=== PATIENT | female | born 1990 | race American Indian/Alaskan Native ===

== ENCOUNTER 2017-01-03 17:34 | Emergency (ER) | payer MEDICAID ==
[2017-01-03 17:40] VITALS: BMI 20.9
[2017-01-03 17:42] VITALS: BP 118/75; PULSE 93; TEMP 99
--- NOTE | 2017-01-03 18:10 | ED PDOC ---
Arrival/HPI - General Chief Complaint: Lower Extremity Problem/Injury Time Seen by Provider: 01/03/17 17:46 Historian: Patient - History of Present Illness Narrative History of Present Illness (Text): 01/03/17 18:07 26yr old female presents today with right ankle pain. pt doesnt remember any injury to the ankle but states she did workout this morning. pt c/o pain over the lateral malleolus. denies calf pain. denies numbness, weakness or tingling in the extremity. pt denies fever/chills. pt with prior hx of high ankle sprain of the right ankle in the past. Symptom Onset: Sudden Symptom Course: Unchanged Quality: Aching Severity Level: 3 Past Medical History - Provider Review Nursing Documentation Reviewed: Yes - Travel History Have you recently traveled outside [place] w/in the past 3 mons?: No - Infectious Disease Hx of Infectious Diseases: None - Tetanus Immunization Tetanus Immunization: Unknown - Psychiatric Hx Substance Use: No Family/Social History - Physician Review Nursing Documentation Reviewed: Yes Family/Social History: Unknown Family HX Smoking Status: Light Smoker < 10 Cigarettes Daily Hx Alcohol Use: No Hx Substance Use: No Allergies/Home Meds Allergies/Adverse Reactions: Allergies shellfish derived Allergy (Verified 01/03/17 17:40) ANAPHYLAXIS Review of Systems - Review of Systems Constitutional: absent: Fatigue, Fevers Respiratory: absent: SOB, Cough Cardiovascular: absent: Chest Pain, Palpitations Gastrointestinal: absent: Abdominal Pain, Nausea, Vomiting Genitourinary Female: absent: Dysuria, Frequency, Hematuria Musculoskeletal: Arthralgias (right ankle pain). absent: Back Pain, Neck Pain Skin: absent: Rash, Pruritis Neurological: absent: Headache Psychiatric: absent: Anxiety, Depression Physical Exam Vital Signs Reviewed: Yes Vital Signs Temp Pulse Resp BP Pulse Ox 01/03/17 17:41 99.0 F 93 H 17 118/75 100 Temperature: Afebrile Blood Pressure: Normal Pulse: Regular Respiratory Rate: Normal Appearance: Positive for: Well-Appearing, Non-Toxic, Comfortable Pain Distress: None Mental Status: Positive for: Alert and Oriented X 3 - Systems Exam Head: Present: Atraumatic Mouth: Present: Moist Mucous Membranes Neck: Present: Normal Range of Motion Respiratory/Chest: Present: Clear to Auscultation, Good Air Exchange. No: Respiratory Distress, Accessory Muscle Use Cardiovascular: Present: Regular Rate and Rhythm, Normal S1, S2. No: Murmurs Upper Extremity: Present: Normal Inspection Lower Extremity: Present: Normal ROM, Tenderness (right ankle; + ttp over ), Swelling, Neurovascularly Intact, Capillary Refill < 2 s. No: CALF TENDERNESS, Erythema, Deformity Neurological: Present: GCS=15 Skin: Present: Warm, Dry, Normal Color. No: Rashes Psychiatric: Present: Alert, Oriented x 3 Medical Decision Making ED Course and Treatment: 01/03/17 18:27 Patient nontoxic well-appearing in no distress with stable vital signs Patient refused Toradol for pain. Motrin given by mouth X-rays of the right ankle: no fracture Patient placed in aircast and crutches given for ambulation. I discussed all results in depth with the patient advised to followup with the orthopedist within the next 2 days. Advised return if symptoms worsen persist or new symptoms develop i advised the patient that although the xrays show no fracture; there is still a possibility for ligamentous or tendon injury the patient must see the orthopedist for further evaluation. Patient verbalizes understanding of discharge instructions and need for immediate followup. Impression: Ankle pain Motrin every 6 hours as needed for pain Rest, ice, compression, elevation Use crutches for ambulation Followup with the orthopedist within the next 2 days Followup with primary care physician within the next 2 days Return if symptoms worsen persist or if new symptoms develop 01/03/17 19:01 - RAD Interpretation Radiology Orders: 01/03/17 17:51 ANKLE RIGHT 3 VIEWS ROUTINE [RAD] Stat - Medication Orders Current Medication Orders: Discontinued Medications Ibuprofen (Motrin Tab) 600 mg PO STAT STA Stop: 01/03/17 17:51 Last Admin: 01/03/17 18:12 Dose: 600 mg Disposition/Present on Arrival - Present on Arrival Any Indicators Present on Arrival: No History of DVT/PE: No History of Uncontrolled Diabetes: No Urinary Catheter: No History of Decub. Ulcer: No History Surgical Site Infection Following: None - Disposition Have Diagnosis and Disposition been Completed?: Yes Diagnosis: Ankle pain Disposition: HOME/ ROUTINE Disposition Time: 19:05 Patient Plan: Discharge Condition: GOOD Discharge Instructions (ExitCare): Arthralgia (ED) Additional Instructions: Motrin every 6 hours as needed for pain Rest, ice, compression, elevation Use crutches for ambulation Followup with the orthopedist within the next 2 days Followup with primary care physician within the next 2 days Return if symptoms worsen persist or if new symptoms develop Prescriptions: Ibuprofen [Motrin] 600 mg PO Q6H PRN #20 tab PRN Reason: pain/fever reduction Referrals: [facility] [place] - Follow up with primary [facility] [place] [Outside] - Follow up with primary Helen Kim MD [Staff Provider] - Follow up with primary Alise Khan MD [Staff Provider] - Follow up with primary Forms: WORK NOTE
[2017-01-03 19:17] VITALS: RESP 16; O2SAT 99
--- NOTE | 2017-01-04 08:20 | RAD ---
PROCEDURE: Right Ankle Radiographs. HISTORY: ankle pain lateral malleolus COMPARISON: None FINDINGS: BONES: Normal. No fracture. JOINTS: Normal. No osteoarthritis. Ankle mortise maintained. Talar dome intact SOFT TISSUES: Normal. OTHER FINDINGS: None. IMPRESSION: Normal right ankle radiographs.
== END 2017-01-03 19:17 | disposition home or self-care (01) ==
LOC: ED 17:34
DX: M25.571 Pain in right ankle and joints of right foot (principal)

== ENCOUNTER 2017-06-20 18:24 | Emergency (ER) | payer MEDICAID ==
[2017-06-20 18:27] VITALS: BMI 25.2
[2017-06-20 18:34] VITALS: TEMP 98; O2SAT 100
[2017-06-20] MEDS ORDERED: Sodium Chloride 0.9% 1,000 ML IV STA (18:44)
--- NOTE | 2017-06-20 19:02 | ED PDOC ---
Arrival/HPI - General Chief Complaint: Abdominal Pain Time Seen by Provider: 06/20/17 18:43 Historian: Patient - History of Present Illness Narrative History of Present Illness (Text): 06/20/17 19:00 A 27 year old female, LMP was 12 days ago, presents to the emergency department complaining of abdominal pain for the past couple of weeks. Patient reports developed as lower abdominal pain and 30 minutes prior to arrival to the emergency department felt a sharp pain on RUQ radiating to RLQ. Reports she made an appointment with LEAD DEVELOPER, which is in four days, and her health policy manager , which is on 07/13/17. Patient denies any nausea, vomiting, vaginal bleeding or any other complaints at this time. Time/Duration: > week Symptom Onset: Sudden Symptom Course: Unchanged Activities at Onset: Rest Context: Home Past Medical History - Provider Review Nursing Documentation Reviewed: Yes - Infectious Disease Hx of Infectious Diseases: None - Tetanus Immunization Tetanus Immunization: Unknown - Psychiatric Hx Substance Use: No - Anesthesia Hx Anesthesia: No Family/Social History - Physician Review Nursing Documentation Reviewed: Yes Family/Social History: No Known Family HX Smoking Status: Light Smoker < 10 Cigarettes Daily Hx Alcohol Use: Yes Frequency of alcohol use: Socially Hx Substance Use: No Allergies/Home Meds Allergies/Adverse Reactions: Allergies shellfish derived Allergy (Severe, Verified 07/02/17 18:31) ANAPHYLAXIS Review of Systems - Physician Review All systems were reviewed & negative as marked: Yes - Review of Systems Gastrointestinal: Abdominal Pain. absent: Nausea, Vomiting Genitourinary Female: absent: Vaginal Bleeding Physical Exam Vital Signs Reviewed: Yes Vital Signs Temp Pulse Resp BP Pulse Ox 06/20/17 20:24 80 16 130/75 100 06/20/17 18:27 98.0 F 81 17 133/86 100 Temperature: Afebrile Blood Pressure: Normal Pulse: Regular Respiratory Rate: Normal Appearance: Positive for: Well-Appearing, Non-Toxic, Comfortable Pain Distress: None Mental Status: Positive for: Alert and Oriented X 3 - Systems Exam Head: Present: Atraumatic, Normocephalic Pupils: Present: PERRL Extroacular Muscles: Present: EOMI Conjunctiva: Present: Normal Mouth: Present: Moist Mucous Membranes Neck: Present: Normal Range of Motion Respiratory/Chest: Present: Clear to Auscultation, Good Air Exchange. No: Respiratory Distress, Accessory Muscle Use Cardiovascular: Present: Regular Rate and Rhythm, Normal S1, S2. No: Murmurs Abdomen: Present: Tenderness (RLQ), Normal Bowel Sounds. No: Distention, Peritoneal Signs Back: Present: Normal Inspection Upper Extremity: Present: Normal Inspection. No: Cyanosis, Edema Lower Extremity: Present: Normal Inspection. No: Edema Neurological: Present: GCS=15, CN II-XII Intact, Speech Normal Skin: Present: Warm, Dry, Normal Color. No: Rashes Psychiatric: Present: Alert, Oriented x 3, Normal Insight, Normal Concentration Medical Decision Making ED Course and Treatment: 06/20/17 18:59 Impression: A 27 year old female with RLQ abdominal pain. Plan: -- CT abd/pelvis -- labs -- Urinalysis -- IV fluids, Toradol -- Reassess and disposition Prior Visits: Notes and results from previous visits were reviewed. Patient last reported to the emergency department on 01/03/17 for evaluation of right ankle pain. Progress Notes: CT Abdomen and Pelvis Without Intravenous Contrast FINDINGS: Lower thorax: The bilateral lung bases are clear. ABDOMEN: Liver: No acute findings Gallbladder and bile ducts: No acute finding. No calcified stones. No intra- extrahepatic biliary ductal dilation. Pancreas: Limited evaluation secondary to the lack of intravenous contrast. Spleen: No acute findings. Adrenals: No acute findings. Kidneys and ureters: No obstructing stones. No hydronephrosis. PELVIS: Bladder: No acute findings. Reproductive: Nondiagnostic evaluation secondary to the lack of intravenous contrast and intraabdominal/intrapelvic fat. Appendix: The appendix is normal in caliber without surrounding inflammatory change (series 2, image 161; series 601, image 61). ABDOMEN and PELVIS: Stomach and bowel: No acute findings. Peritoneum: No acute findings. Lymph nodes: Limited evaluation without intravenous contrast. Vasculature: Unremarkable Bones: No acute fracture. IMPRESSION: Normal appendix. Limited evaluation of the female pelvis. If clinical suspicion persists for LEAD DEVELOPER pathology, pelvic ultrasound would provide additional information. Dictated and Authenticated by: Denita Ralph MD 06/20/2017 9:24 PM Eastern Time ([place] & [place]) 06/20/17 21:31 On reevaluation, patient feels better and is in no acute distress. Discussed results and plan with patient. Patient understands results and is agreeable with plan. All questions answered. Patient is stable for discharge. - Lab Interpretations Lab Results: 06/20/17 19:25 06/20/17 19:25 Lab Results 06/20/17 19:25: Sodium 139, Potassium 3.9, Chloride 103, Carbon Dioxide 27, Anion Gap 13, BUN 15, Creatinine 0.8, Est GFR ( Amer) > 60, Est GFR (Non- Af Amer) > 60, Random Glucose 100, Calcium 9.9, Total Bilirubin 0.4, AST 27, ALT 30, Alkaline Phosphatase 51, Total Protein 7.4, Albumin 4.5, Globulin 2.9, Albumin/Globulin Ratio 1.6, Lipase 62 06/20/17 19:25: WBC 6.4, RBC 4.19, Hgb 11.8 L, Hct 34.8 L, MCV 83.1, MCH 28.2, MCHC 33.9, RDW 13.6, Plt Count 306, MPV 9.5, Gran % 56.5, Lymph % (Auto) 31.9, [place] % (Auto) 7.5 H, Eos % (Auto) 3.8, Baso % (Auto) 0.3, Gran # 3.62, Lymph # 2.0, [place] # 0.5, Eos # 0.2, Baso # 0.02 06/20/17 19:00: Urine Color Yellow, Urine Appearance Clear, Urine pH 6.5, Ur Specific [place] 1.015, Urine Protein Negative, Urine Glucose (UA) Negative, Urine Ketones Negative, Urine Blood Negative, Urine Nitrate Negative, Urine Bilirubin Negative, Urine Urobilinogen 0.2, Ur Leukocyte Esterase Negative, Urine HCG, Qual Negative I have reviewed the lab results: Yes - RAD Interpretation Radiology Orders: 06/20/17 18:48 ABD & PELVIS W/O PO OR IV CONT [CT] Stat - Medication Orders Current Medication Orders: Discontinued Medications Sodium Chloride (Sodium Chloride 0.9%) 1,000 mls @ 1,000 mls/hr IV .Q1H STA Stop: 06/20/17 19:43 Last Admin: 06/20/17 19:40 Dose: 1,000 mls/hr eMAR Start Stop Document 06/20/17 19:40 JOL (Rec: 06/20/17 19:41 [facility] [place] Intravenous Solution Start Date 06/20/17 Start Time 19:41 End Date 06/20/17 End time 20:41 Total Infusion Time 60 Ketorolac Tromethamine (Toradol) 30 mg IVP STAT STA Stop: 06/20/17 18:45 Last Admin: 06/20/17 19:41 Dose: 30 mg MAR Pain Assessment Document 06/20/17 19:41 RUEL (Rec: 06/20/17 19:41 [facility]) Pain Reassessment Is this a pain reassessment? No Sleep Is patient sleeping during reassessment? No Presence of Pain Presence of Pain Yes Pain Scale Used Pain Scale Used Numeric Location Left, Right or Bilateral Right Upper or Lower Lower Pain Location Body Site Abdomen Description Description Intermittent Intensity of Pain at present 6 Acceptable Level of Pain 2 Pain Behavior Restlessness Facial Grimacing IVP Administration Document 06/20/17 19:41 RUEL (Rec: 06/20/17 19:41 [facility]) Charges for Administration # of IVP Administrations 1 - Scribe Statement The provider has reviewed the documentation as recorded by the Scribheladio Rivers All medical record entries made by the Scribe were at my direction and personally dictated by me. I have reviewed the chart and agree that the record accurately reflects my personal performance of the history, physical exam, medical decision making, and the department course for this patient. I have also personally directed, reviewed, and agree with the discharge instructions and disposition. Disposition/Present on Arrival - Present on Arrival Any Indicators Present on Arrival: No History of DVT/PE: No History of Uncontrolled Diabetes: No Urinary Catheter: No History of Decub. Ulcer: No History Surgical Site Infection Following: None - Disposition Have Diagnosis and Disposition been Completed?: Yes Diagnosis: Abdominal pain Disposition: HOME/ ROUTINE Disposition Time: 21:39 Condition: IMPROVED Discharge Instructions (ExitCare): Abdominal Pain (ED) Forms: [employer] (Djiboutian)
[2017-06-20 19:22] LABS: PH,URINE 6.5 (4.7-8.0); URINE BILIRUBIN NEGATIVE (NEGATIVE); URINE BLOOD NEGATIVE (NEGATIVE); URINE GLUCOSE (UA) NEGATIVE (NEGATIVE); URINE KETONE NEGATIVE (NEGATIVE); URINE LEUKOCYTE ESTERASE NEGATIVE Leu/uL (NEGATIVE); URINE PROTEIN NEGATIVE mg/dL (<30 mg/dL); URINE UROBILINOGEN 0.2 E.U./dL (<1 E.U./dL)
[2017-06-20 19:24] LABS: URINE APPEARANCE CLEAR (CLEAR); URINE COLOR YELLOW (YELLOW)
[2017-06-20 19:55] LABS: ALB/GLOB RATIO 1.6 (1.1-1.8); ALKALINE PHOSPHATASE 51 U/L (38-126); ALT/SGPT 30 U/L (7-56); AST/SGOT 27 U/L (14-36); BILIRUBIN,TOTAL 0.4 mg/dL (0.2-1.3); BLOOD UREA NITROGEN 15 mg/dL (7-21); CALCIUM 9.9 mg/dL (8.4-10.5); CARBON DIOXIDE 27 mmol/L (21-33); CHLORIDE 103 mmol/L (98-107); GFR AFRICAN-AMERICAN > 60; GLUCOSE,RANDOM 100 mg/dL (70-110); LIPASE 62 U/L (23-300); POTASSIUM 3.9 mmol/L (3.6-5.0); SODIUM 139 mmol/L (132-148); TOTAL PROTEIN 7.4 g/dL (5.8-8.3)
[2017-06-20 20:07] LABS: BASO # 0.02 K/mm3 (0.0-2.0); BASO % 0.3 % (0.0-3.0); EOS # 0.2 (0.0-0.7); EOS % 3.8 % (1.5-5.0); GRAN # 3.62 (1.4-6.5); GRAN % 56.5 % (50.0-68.0); HEMATOCRIT 34.8 % (36.0-48.0); LYMPH % 31.9 % (22.0-35.0); MEAN CELL VOLUME 83.1 fl (80.0-105.0); MEAN CORPUSCULAR HEMOGLOBIN 28.2 pg (25.0-35.0); MEAN CORPUSCULAR HGB CONC 33.9 g/dl (31.0-37.0); MEAN PLATELET VOLUME 9.5 fl (7.0-11.0); MONO # 0.5 (0.1-0.6); MONO % 7.5 % (1.0-6.0); RED CELL DISTRIBUTION WIDTH 13.6 % (11.5-14.5); WHITE BLOOD COUNT 6.4 10^3/ul (4.5-11.0)
--- NOTE | 2017-06-20 21:24 | CT ---
EXAM: CT Abdomen and Pelvis Without Intravenous Contrast CLINICAL HISTORY: 27 years old, female; Pain; Abdominal pain; Localized; Right lower quadrant (rlq) TECHNIQUE: Axial computed tomography images of the abdomen and pelvis without intravenous contrast. All CT scans at this facility use one or more dose reduction techniques, viz.: automated exposure control; ma/kV adjustment per patient size (including targeted exams where dose is matched to indication; i.e. head); or iterative reconstruction technique. MIP reconstructed images were created and reviewed. Coronal and sagittal reformatted images were created and reviewed. COMPARISON: No relevant prior studies available. FINDINGS: Lower thorax: The bilateral lung bases are clear. ABDOMEN: Liver: No acute findings Gallbladder and bile ducts: No acute finding. No calcified stones. No intra-extrahepatic biliary ductal dilation. Pancreas: Limited evaluation secondary to the lack of intravenous contrast. Spleen: No acute findings. Adrenals: No acute findings. Kidneys and ureters: No obstructing stones. No hydronephrosis. PELVIS: Bladder: No acute findings. Reproductive: Nondiagnostic evaluation secondary to the lack of intravenous contrast and intra-abdominal/intrapelvic fat. Appendix: The appendix is normal in caliber without surrounding inflammatory change (series 2, image 161; series 601, image 61). ABDOMEN and PELVIS: Stomach and bowel: No acute findings. Peritoneum: No acute findings. Lymph nodes: Limited evaluation without intravenous contrast. Vasculature: Unremarkable Bones: No acute fracture. IMPRESSION: Normal appendix. Limited evaluation of the female pelvis. If clinical suspicion persists for GENERAL SALES MANAGER pathology, pelvic ultrasound would provide additional information.
[2017-06-20 21:53] VITALS: BP 130/75; PULSE 80; RESP 16
== END 2017-06-20 21:39 | disposition home or self-care (01) ==
LOC: ED 18:24
DX: R10.9 Unspecified abdominal pain (principal)
CPT/HCPCS: 74176; 80053; 81003; 83690; 84703; 85025; 96361; 96374; 99284; J1885; J7040

== ENCOUNTER 2017-07-02 18:25 | Emergency (ER) | payer MEDICAID ==
[2017-07-02 18:25] VITALS: BMI 25.2
[2017-07-02 18:34] VITALS: TEMP 98.1; O2SAT 100
--- NOTE | 2017-07-02 18:53 | ED PDOC ---
Arrival/HPI - General Chief Complaint: Abdominal Pain Time Seen by Provider: 07/02/17 18:26 Historian: Patient - History of Present Illness Narrative History of Present Illness (Text): 07/02/17 18:35 A 27 year old female, whose denies any significant past medical history, presents to the emergency department for abdominal pain, which began 2 months ago, she was last seen for her abdominal pain in the emergency department 12 days ago, but the pain has worsened today and now she states she has black stool. The patient reports the abdominal pain began in her lower abdomen area then radiated to her periumbilical region and now the pain is currently on her right upper quadrant. The patient denies any nausea, vomiting, diarrhea, dysuria , or any other complaints at this time. The patient admits to starting a new multivitamin with iron and probiotics 3 weeks ago. She denies taking any controls and states "she isn't sexually active." LMP: 06/08/17 PMD: Dr. Wynne Time/Duration: > week (x 12 days ) Symptom Onset: Gradual Symptom Course: Unchanged Activities at Onset: Light Context: Home, Work Associated Symptoms (Text): 07/02/17 19:05 Approximately 2 month history of abdominal pain. Patient reports that the pain began in her lower abdomen and moved into her periumbilical region and is now in her right upper quadrant. No nausea vomiting or diarrhea. No back pain. No radiation. No genitourinary symptoms. Patient was seen in the emergency department 12 days ago for similar complaints. She had a CT scan of her abdomen and pelvis at that time which was unrevealing. She started to have some black stool today. She did start to take some multivitamins with iron in them. She does not take aspirin or nonsteroidal anti-inflammatory medications. No Pepto- Bismol. No chest pain. No dizziness or lightheadedness. She appears to be comfortable. She is refusing pain medication at this time. Past Medical History - Provider Review Nursing Documentation Reviewed: Yes - Infectious Disease Hx of Infectious Diseases: None - Tetanus Immunization Tetanus Immunization: Unknown - Psychiatric Hx Substance Use: No - Anesthesia Hx Anesthesia: No Family/Social History - Physician Review Nursing Documentation Reviewed: Yes Family/Social History: Unknown Family HX Smoking Status: Current Some Days Smoker Hx Alcohol Use: Yes Frequency of alcohol use: Socially Hx Substance Use: No Allergies/Home Meds Allergies/Adverse Reactions: Allergies shellfish derived Allergy (Severe, Verified 07/02/17 18:31) ANAPHYLAXIS Review of Systems - Physician Review All systems were reviewed & negative as marked: Yes - Review of Systems Constitutional: absent: Fatigue, Fevers Respiratory: Normal. absent: SOB Cardiovascular: Normal. absent: Chest Pain, Palpitations, Syncope Gastrointestinal: Abdominal Pain. absent: Constipation, Diarrhea, Nausea, Vomiting, Anorexia Genitourinary Female: absent: Dysuria, Frequency, Hematuria Neurological: absent: Headache, Dizziness Physical Exam Vital Signs Reviewed: Yes Vital Signs Temp Pulse Resp BP Pulse Ox 07/02/17 20:41 89 19 117/84 100 07/02/17 18:28 98.1 F 97 H 18 132/90 100 Temperature: Afebrile Blood Pressure: Normal Pulse: Regular Respiratory Rate: Normal Appearance: Positive for: Well-Appearing, Non-Toxic, Comfortable Pain Distress: None Mental Status: Positive for: Alert and Oriented X 3 - Systems Exam Head: Present: Atraumatic, Normocephalic Pupils: Present: PERRL Extroacular Muscles: Present: EOMI Conjunctiva: Present: Normal Mouth: Present: Moist Mucous Membranes Pharnyx: No: ERYTHEMA, EXUDATE, TONSILS ENLARGED Neck: Present: Normal Range of Motion Respiratory/Chest: Present: Clear to Auscultation, Good Air Exchange. No: Respiratory Distress, Accessory Muscle Use Cardiovascular: Present: Regular Rate and Rhythm, Normal S1, S2. No: Murmurs Abdomen: Present: Tenderness (mild RUQ tenderness), Normal Bowel Sounds. No: Distention, Peritoneal Signs, Rebound, Guarding Rectal: Present: Normal Rectal Tone, Other (black stool found- guaiac negative ) . No: Occult Blood, Rectal Tenderness, Gross Blood, Melena, Hemorrhoids, Fissures, Nodule/Mass/Lesions Back: Present: Normal Inspection Upper Extremity: Present: Normal Inspection. No: Cyanosis, Edema Lower Extremity: Present: Normal Inspection. No: Edema Neurological: Present: GCS=15, CN II-XII Intact, Speech Normal, Motor Func Grossly Intact Skin: Present: Warm, Dry, Normal Color. No: Rashes Psychiatric: Present: Alert, Oriented x 3, Normal Insight, Normal Concentration Medical Decision Making ED Course and Treatment: 07/02/17 18:58 Impression: A 27 year old female with abdominal pain. Differential Diagnosis included but are not limited to: Plan: -- Abdomen US -- Labs -- test -- Urinalysis -- Reassess and disposition Progress Notes: 07/02/17 18:45 A rectal exam was preformed by me. Chaperoned by Mckenna Diaz. Results show positive for black stool, negative for guaiac. 07/02/17 20:58 Patient still does not want pain medication. Waiting for ultrasound reading. 07/02/17 21:12 Ultrasound of the abdomen as read by the V rad radiologist shows a questionable liver hemangioma. Patient was seen by the PRIMER PRESS OPERATOR last week and told that her problem was not PRIMER PRESS OPERATOR related. She has an appointment with the record clerk salesperson on July 13. She will be given a prescription for Protonix to try in the meantime. Follow-up in the ER as needed. Black stool probably secondary to iron, as her guaiac was negative. - Lab Interpretations Lab Results: 07/02/17 18:55 07/02/17 18:55 Lab Results 07/02/17 18:55: Sodium 141, Potassium 4.0, Chloride 104, Carbon Dioxide 28, Anion Gap 14, BUN 14, Creatinine 0.7, Est GFR ( Amer) > 60, Est GFR (Non- Af Amer) > 60, Random Glucose 96, Calcium 10.3, Total Bilirubin 0.4, AST 27, ALT 29, Alkaline Phosphatase 50, Total Protein 8.1, Albumin 4.7, Globulin 3.4, Albumin/Globulin Ratio 1.4, Lipase 47 07/02/17 18:55: Urine Color Straw, Urine Appearance Clear, Urine pH 6.5, Ur Specific [place] 1.015, Urine Protein Negative, Urine Glucose (UA) Negative, Urine Ketones Negative, Urine Blood Trace-intact H, Urine Nitrate Negative, Urine Bilirubin Negative, Urine Urobilinogen 0.2, Ur Leukocyte Esterase Negative , Urine RBC 1 - 3, Urine WBC 0 - 2, Ur Epithelial Cells 3 - 4, Urine Bacteria Rare, Urine HCG, Qual Negative 07/02/17 18:55: WBC 5.6, RBC 4.44, Hgb 12.7, Hct 36.7, MCV 82.7, MCH 28.6, MCHC 34.6, RDW 13.7, Plt Count 316, MPV 9.5, Gran % 50.5, Lymph % (Auto) 35.9 H, [place] % (Auto) 8.0 H, Eos % (Auto) 5.2 H, Baso % (Auto) 0.4, Gran # 2.85, Lymph # 2.0, [place] # 0.5, Eos # 0.3, Baso # 0.02 - RAD Interpretation Radiology Orders: 07/02/17 18:46 ABDOMEN COMPLETE [US] Stat - Scribe Statement The provider has reviewed the documentation as recorded by the Scribe Mckenna Diaz Provider Scribe Attestation: All medical record entries made by the Scribe were at my direction and personally dictated by me. I have reviewed the chart and agree that the record accurately reflects my personal performance of the history, physical exam, medical decision making, and the department course for this patient. I have also personally directed, reviewed, and agree with the discharge instructions and disposition. Disposition/Present on Arrival - Present on Arrival Any Indicators Present on Arrival: No History of DVT/PE: No History of Uncontrolled Diabetes: No Urinary Catheter: No History of Decub. Ulcer: No History Surgical Site Infection Following: None - Disposition Have Diagnosis and Disposition been Completed?: Yes Diagnosis: Abdominal pain, Right upper quadrant pain, Hemangioma Disposition: HOME/ ROUTINE Disposition Time: 21:14 Patient Plan: Discharge Patient Problems: Current Active Problems Problem Status Onset Abdominal pain Acute Hemangioma Acute Right upper quadrant pain Acute Condition: GOOD Discharge Instructions (ExitCare): Acute Abdominal Pain (ED) Additional Instructions: Keep appointment with your record clerk salesperson. Follow-up with PMD. Follow up in ER as needed. Prescriptions: Pantoprazole Sodium [Protonix] 40 mg PO DAILY #20 ect Referrals: Helen Kim MD [Primary Care Provider] - Follow up with primary Forms: [facility] (Indonesian)
[2017-07-02 19:14] LABS: BASO # 0.02 K/mm3 (0.0-2.0); BASO % 0.4 % (0.0-3.0); EOS # 0.3 (0.0-0.7); EOS % 5.2 % (1.5-5.0); GRAN # 2.85 (1.4-6.5); GRAN % 50.5 % (50.0-68.0); HEMATOCRIT 36.7 % (36.0-48.0); LYMPH % 35.9 % (22.0-35.0); MEAN CELL VOLUME 82.7 fl (80.0-105.0); MEAN CORPUSCULAR HEMOGLOBIN 28.6 pg (25.0-35.0); MEAN CORPUSCULAR HGB CONC 34.6 g/dl (31.0-37.0); MEAN PLATELET VOLUME 9.5 fl (7.0-11.0); MONO # 0.5 (0.1-0.6); RED CELL DISTRIBUTION WIDTH 13.7 % (11.5-14.5); WHITE BLOOD COUNT 5.6 10^3/ul (4.5-11.0)
[2017-07-02 19:40] LABS: PH,URINE 6.5 (4.7-8.0); URINE BILIRUBIN NEGATIVE (NEGATIVE); URINE BLOOD TRACE-INTACT (NEGATIVE); URINE GLUCOSE (UA) NEGATIVE (NEGATIVE); URINE KETONE NEGATIVE (NEGATIVE); URINE LEUKOCYTE ESTERASE NEGATIVE Leu/uL (NEGATIVE); URINE PROTEIN NEGATIVE mg/dL (<30 mg/dL); URINE UROBILINOGEN 0.2 E.U./dL (<1 E.U./dL)
[2017-07-02 19:41] LABS: ALB/GLOB RATIO 1.4 (1.1-1.8); ALKALINE PHOSPHATASE 50 U/L (38-126); ALT/SGPT 29 U/L (7-56); AST/SGOT 27 U/L (14-36); BILIRUBIN,TOTAL 0.4 mg/dL (0.2-1.3); BLOOD UREA NITROGEN 14 mg/dL (7-21); CALCIUM 10.3 mg/dL (8.4-10.5); CARBON DIOXIDE 28 mmol/L (21-33); CHLORIDE 104 mmol/L (98-107); GFR AFRICAN-AMERICAN > 60; GLUCOSE,RANDOM 96 mg/dL (70-110); LIPASE 47 U/L (23-300); SODIUM 141 mmol/L (132-148); TOTAL PROTEIN 8.1 g/dL (5.8-8.3); URINE APPEARANCE CLEAR (CLEAR); URINE COLOR STRAW (YELLOW)
[2017-07-02 20:05] LABS: URINE BACTERIA RARE (NEG); URINE WBC 0 - 2 /hpf (0-6)
[2017-07-02 20:41] VITALS: BP 117/84; PULSE 89; RESP 19
--- NOTE | 2017-07-02 21:10 | US ---
EXAM: US Abdomen Complete CLINICAL HISTORY: 27 years old, female; Pain; Other: Ruq pain/black stool TECHNIQUE: Real-time ultrasound of the abdomen (complete) with image documentation. COMPARISON: CT - ABD PELVIS W/O PO OR IV CONT 2017-06-20 20:18 FINDINGS: Liver: 1.6 cm hypoechoic/heterogeneous lesion in the right lobe of the liver which demonstrates flow, question hemangioma, cannot be confirmed on this study. Gallbladder: Contracted. No shadowing gallstones visualized. Common bile duct: No acute abnormality as visualized. No stones. No dilation. Pancreas: No acute abnormality as visualized. Kidneys: Right kidney measured 11 cm. Left kidney measured at 10.8 cm. No hydronephrosis. 1.4 cm cyst in the lower pole of the left kidney. Spleen: No splenomegaly. Aorta/IVC: No acute abnormality as visualized. IMPRESSION: No acute sonographic abnormality. 1.6 cm hypoechoic/heterogeneous lesion in the right lobe of the liver which demonstrates flow, question hemangioma, cannot be confirmed on this study. 1.4 cm cyst in the lower pole of the left kidney.
== END 2017-07-02 21:30 | disposition home or self-care (01) ==
LOC: ED 18:25
DX: R10.11 Right upper quadrant pain (principal); D18.09 Hemangioma of other sites